=== PATIENT | female | born 1980 | race Caucasian/White ===

== ENCOUNTER 2021-05-23 09:33 | Emergency (ER) | payer MEDICAID, OTHER ==
[2021-05-23] MEDS ORDERED: Ondansetron 4 MG Tab.DIS PO ONE (09:56)
--- NOTE | 2021-05-23 09:59 | EDM.PDOC ---
ED HPI GENERAL MEDICAL PROBLEM - General Chief Complaint: Abdominal Pain Stated Complaint: [id number] SHARP PAIN IN UPPER STOMACH Time Seen by Provider: 05/23/21 09:58 Source of Information: Reports: Patient, RN, RN Notes Reviewed History Limitations: Reports: No Limitations - History of Present Illness INITIAL COMMENTS - FREE TEXT/NARRATIVE: Lorraine is a 40 y/o female who presents to the ED via personal vehicle with complaints of midepigastric abdominal pain and nausea. The patient reports her symptoms started five days ago and have waxed and waned in severity over that time. She characterizes the pain as sharp which sometimes radiates into the right chest. The patient states she was taking Aleve for the pain, but stopped two days ago after she read Aleve can irritate the stomach. She denies fever, shaking chills, vomiting, dysuria, hematuria, constipation, or diarrhea. She notes her last meal was a light snack before bed as she did not eat supper due to pain. Her LMP ended two two days ago. Her last BM was yesterday and was normal for her. She denies tobacco, alcohol, or recreational drug use. 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: Psychiatric History: Reports: Anxiety Hematologic History: Reports: Transfusion Reaction Other Hematologic History: Factor V - Infectious Disease History Infectious Disease History: Reports: Chicken Pox - Past Surgical History HEENT Surgical History: Reports: Adenoidectomy, Naso-Sinus Surgery, Tonsillectomy, Other (See Below) Other HEENT Surgeries/Procedures: wisdom teeth removed Social & Family History - Tobacco Use Tobacco Use Status *Q: Never Tobacco User - Recreational Drug Use Recreational Drug Use: No ED ROS GENERAL - Review of Systems Review Of Systems: Comprehensive ROS is negative, except as noted in HPI. ED EXAM, GI/ABD - Physical Exam Exam: See Below Exam Limited By: No Limitations General Appearance: Alert, Mild Distress (Midepigastric pain) Eyes: Bilateral: Normal Appearance, EOMI Ears: Normal External Exam, Hearing Grossly Normal Nose: Normal Inspection, Normal Mucosa Throat/Mouth: Normal Inspection, Normal Oropharynx, Normal Voice, No Airway Compromise Head: Atraumatic, Normocephalic Neck: Normal Inspection, Supple, Non-Tender, Full Range of Motion Respiratory/Chest: No Respiratory Distress, Lungs Clear, Normal Breath Sounds, No Accessory Muscle Use, Chest Non-Tender Cardiovascular: Normal Peripheral Pulses, Regular Rate, Rhythm, No Edema, No Gallop, No JVD, No Murmur, No Rub GI/Abdominal Exam: Soft, No Distention, No Abnormal Bruit, No Mass, Pelvis Stable, Tender (To midepigastric region), Abnormal Bowel Sounds (Hypoactive) (Female) Exam: Deferred Rectal (Female) Exam: Deferred Back Exam: Normal Inspection, Full Range of Motion Extremities: Normal Inspection, Normal Range of Motion, Non-Tender, No Pedal Edema, Normal Capillary Refill Neurological: Alert, Oriented, CN II-XII Intact, Normal Cognition, Normal Gait, No Motor/Sensory Deficits Psychiatric: Normal Affect, Normal Mood Skin Exam: Warm, Dry, Intact, Normal Color, No Rash. No: Cyanosis, Ecchymosis, Erythema, Jaundice, Mottled, Pallor, Petechiae Lymphatic: No Adenopathy #1 Interpretation EKG Date: 05/23/21 Time: 10:47 Rhythm: NSR Rate (Beats/Min): 76 [place]: Normal P-Wave: Present QRS: Normal ST-T: Normal QT: Normal MA/PQ Interval: 0.136 Comparison: NA - No Prior EKG EKG Interpretation Comments: NSR; No evidence of acute myocardial ischemia Course - Vital Signs Last Recorded V/S: Last Vital Signs Temp 97.5 F 05/23/21 09:41 Pulse 78 05/23/21 09:41 Resp 16 05/23/21 09:41 BP 131/82 05/23/21 09:41 Pulse Ox 100 05/23/21 09:41 - Orders/Labs/Meds Orders: Active Orders 24 hr Category Date Time Status Abdomen Ltd [US] Urgent Exams 05/23/21 10:39 Taken Labs: Laboratory Tests 05/23/21 05/23/2121 Range/Units 10:04 10:04 10:04 WBC (5.0-10.0) 10^3/uL RBC (4.2-5.4) 10^6/uL Hgb (12.0-16.0) g/dL Hct (37.0-47.0) % MCV (80-100) fL MCH (27.0-34.0) pg MCHC (33.0-35.0) g/dL Plt Count (150-450) 10^3/uL Neut % (Auto) (42.2-75.2) % Lymph % (Auto) (20.5-50.1) % Gila % (Auto) (2-8) % Eos % (Auto) (1.0-3.0) % Baso % (Auto) (0.0-1.0) % Sodium (136-145) mmol/L Potassium (3.5-5.1) mmol/L Chloride (98-107) mmol/L Carbon Dioxide (21-32) mmol/L Anion Gap (7-13) mEq/L BUN (7-18) mg/dL Creatinine (0.55-1.02) mg/dL Est Cr Clr Drug Dosing mL/min Estimated GFR (MDRD) BUN/Creatinine Ratio (No establ ref range) Glucose (70-99) mg/dL Lactic Acid (0.4-2.0) mmol/L Calcium (8.5-10.1) mg/dL Magnesium (1.8-2.4) mg/dL Total Bilirubin (0.2-1.0) mg/dL AST (15-37) U/L ALT (14-59) U/L Alkaline Phosphatase (46-116) U/L Troponin I High Sens (<=51) pg/mL C-Reactive Protein (0.0-0.9) mg/dL Total Protein (6.4-8.2) g/dL Albumin (3.4-5.0) g/dL Globulin Albumin/Globulin Ratio Amylase (25-115) U/L Lipase (73-393) U/L Urine Color Yellow (YELLOW) Urine Appearance Clear (CLEAR) Urine pH 8.0 (5.0-9.0) Ur Specific Brilliant 1.015 (1.005-1.030) Urine Protein Negative (NEGATIVE) Urine Glucose (UA) Negative (NEGATIVE) Urine Ketones Negative (NEGATIVE) Urine Occult Blood Negative (NEGATIVE) Urine Nitrite Negative (NEGATIVE) Urine Bilirubin Negative (NEGATIVE) Urine Urobilinogen 0.2 (0.2-1.0) mg/dL Ur Leukocyte Esterase Negative (NEGATIVE) Urine HCG, Qual Negative Urine Opiates Screen Negative (NEGATIVE) Ur Oxycodone Screen Negative (NEGATIVE) Urine Methadone Screen Negative (NEGATIVE) Ur Barbiturates Screen Negative (NEGATIVE) U Tricyclic Antidepress Negative (NEGATIVE) Ur Phencyclidine Scrn Negative (NEGATIVE) Ur Amphetamine Screen Negative (NEGATIVE) U Methamphetamines Scrn Negative (NEGATIVE) Urine MDMA Screen Negative (NEGATIVE) U Benzodiazepines Scrn Negative (NEGATIVE) Urine Cocaine Screen Negative (NEGATIVE) U Marijuana (THC) Screen Negative (NEGATIVE) Ethyl Alcohol (0) mg/dL 05/23/21 05/23/21 05/23/21 Range/Units 10:10 10:10 10:10 WBC 4.9 L (5.0-10.0) 10^3/uL RBC 4.86 (4.2-5.4) 10^6/uL Hgb 14.4 (12.0-16.0) g/dL Hct 43.0 (37.0-47.0) % MCV 88.5 (80-100) fL MCH 29.6 (27.0-34.0) pg MCHC 33.5 (33.0-35.0) g/dL Plt Count 228 (150-450) 10^3/uL Neut % (Auto) 63.7 (42.2-75.2) % Lymph % (Auto) 27.8 (20.5-50.1) % Gila % (Auto) 6.7 (2-8) % Eos % (Auto) 1.6 (1.0-3.0) % Baso % (Auto) 0.2 (0.0-1.0) % Sodium 141 (136-145) mmol/L Potassium 3.9 (3.5-5.1) mmol/L Chloride 102 (98-107) mmol/L Carbon Dioxide 28 (21-32) mmol/L Anion Gap 14.9 H (7-13) mEq/L BUN 10 (7-18) mg/dL Creatinine 0.87 (0.55-1.02) mg/dL Est Cr Clr Drug Dosing 82.08 mL/min Estimated GFR (MDRD) > 60 BUN/Creatinine Ratio 11.5 (No establ ref range) Glucose 88 (70-99) mg/dL Lactic Acid 0.8 (0.4-2.0) mmol/L Calcium 9.6 (8.5-10.1) mg/dL Magnesium 2.2 (1.8-2.4) mg/dL Total Bilirubin 0.3 (0.2-1.0) mg/dL AST 18 (15-37) U/L ALT 31 (14-59) U/L Alkaline Phosphatase 70 (46-116) U/L Troponin I High Sens < 4 (<=51) pg/mL C-Reactive Protein < 0.2 (0.0-0.9) mg/dL Total Protein 7.4 (6.4-8.2) g/dL Albumin 4.1 (3.4-5.0) g/dL Globulin 3.3 Albumin/Globulin Ratio 1.2 Amylase 78 (25-115) U/L Lipase 127 (73-393) U/L Urine Color (YELLOW) Urine Appearance (CLEAR) Urine pH (5.0-9.0) Ur Specific Brilliant (1.005-1.030) Urine Protein (NEGATIVE) Urine Glucose (UA) (NEGATIVE) Urine Ketones (NEGATIVE) Urine Occult Blood (NEGATIVE) Urine Nitrite (NEGATIVE) Urine Bilirubin (NEGATIVE) Urine Urobilinogen (0.2-1.0) mg/dL Ur Leukocyte Esterase (NEGATIVE) Urine HCG, Qual Urine Opiates Screen (NEGATIVE) Ur Oxycodone Screen (NEGATIVE) Urine Methadone Screen (NEGATIVE) Ur Barbiturates Screen (NEGATIVE) U Tricyclic Antidepress (NEGATIVE) Ur Phencyclidine Scrn (NEGATIVE) Ur Amphetamine Screen (NEGATIVE) U Methamphetamines Scrn (NEGATIVE) Urine MDMA Screen (NEGATIVE) U Benzodiazepines Scrn (NEGATIVE) Urine Cocaine Screen (NEGATIVE) U Marijuana (THC) Screen (NEGATIVE) Ethyl Alcohol < 3 (0) mg/dL Meds: Medications Discontinued Medications Generic Name Dose Route Start Last Admin Trade Name Freq PRN Reason Stop Dose Admin Al Hydroxide/Mg Hydroxide 30 ml 05/23/21 10:06 05/23/21 10:13 Gi Cocktail Oral Solution 30 Ml PO 05/23/21 10:07 30 ml ONETIME ONE Administration Ondansetron HCl 4 mg 05/23/21 09:56 05/23/21 10:12 Ondansetron 4 Mg Tab.Dis PO 05/23/21 09:57 4 mg ONETIME ONE Administration - Re-Assessments/Exams Free Text/Narrative Re-Assessment/Exam: 05/23/21 GI cocktail and Zofran ODT administered. Labs pending. Patient verbalized moderate improvement in pain following medications. Will obtain US limited abdomen. US reveals cholelithiasis. Findings of examination, lab work, and imaging reviewed with patient. Discussed supportive cares for gallstones as well as need for follow up with PCP and general surgeon, as warranted. Red flag signs and symptoms which would warrant reevaluation reviewed. Patient verbalized understanding and agreement with the plan of care. Departure - Departure Time of Disposition: 14:16 Disposition: Home, Self-Care 01 Condition: Good Clinical Impression: Gallstones without obstruction of gallbladder Qualifiers: Cholelithiasis location: gallbladder Cholecystitis presence: without cholecystitis Qualified Code(s): K80.20 - Calculus of gallbladder without cholecystitis without obstruction - Discharge Information *PRESCRIPTION DRUG MONITORING PROGRAM REVIEWED*: Not Applicable *COPY OF PRESCRIPTION DRUG MONITORING REPORT IN PATIENT IZZY: Not Applicable Instructions: Cholelithiasis Referrals: Shaunna Coughlin MD [Primary Care Provider] - Forms: ED Department Discharge Additional Instructions: 1.) Eat a bland diet, avoid greasy, high-fat, spicy foods. 2.) Drink plenty of water to stay hydrated. 3.) Follow up with your primary care provider regarding today's visit, discuss a surgical consult for repeat attacks. Sepsis Event Note (ED) - Focused Exam Vital Signs: Vital Signs Temp Pulse Resp BP Pulse Ox 05/23/21 09:41 97.5 F 78 16 131/82 100 - My Orders Last 24 Hours: My Active Orders 05/23/21 10:39 Abdomen Ltd [US] Urgent - Assessment/Plan Last 24 Hours: My Active Orders 05/23/21 10:39 Abdomen Ltd [US] Urgent
[2021-05-23] MEDS ORDERED: GI Cocktail Oral Solution 30 ML PO ONE (10:06)
[2021-05-23 10:28] LABS: AMPHETAMINES,URINE NEGATIVE (NEGATIVE); BARBITURATES,URINE NEGATIVE (NEGATIVE); BENZODIAZEPINE,URINE NEGATIVE (NEGATIVE); MDMA (ECSTASY), URINE NEGATIVE (NEGATIVE); METHADONE,URINE NEGATIVE (NEGATIVE); METHAMPHETAMINES,URINE NEGATIVE (NEGATIVE); OPIATES,URINE NEGATIVE (NEGATIVE); OXYCODONE,URINE NEGATIVE (NEGATIVE); PHENCYCLIDINE,URINE NEGATIVE (NEGATIVE); TCA,URINE NEGATIVE (NEGATIVE)
[2021-05-23 10:40] LABS: ANION GAP 14.9 mEq/L (7-13); CHLORIDE,CL 102 mmol/L (98-107); SODIUM,NA 141 mmol/L (136-145)
--- NOTE | 2021-05-24 16:04 | US ---
EXAMINATION: Abdomen Ltd SEX: Female AGE: 40 years CLINICAL HISTORY: 40-year-old female with upper abdominal pain. r/o gallstones. INTERPRETATION: Abnormal. 1. Multiple mobile dependent intraluminal echogenic "shadowing" gallstones (RUQ). 2. No gallbladder wall thickening or abnormal pericystic fluid accumulation. 3. Homogeneous normal sonodensity of the liver. 4. No intrahepatic mass lesion or abnormal dilatation of the intra/\\slash extrahepatic biliary ducts. 5. Normal pancreas. 6. Common hepatic duct 1.59 mm; common bile duct 4.46 mm. 7. No ascites. CONCLUSION: Cholelithiasis.
== END 2021-05-23 14:35 | disposition home or self-care (01) ==
LOC: DL.ED 09:33
DX: K80.20 Calculus of gallbladder without cholecystitis without obstruction (principal); Z88.2 Allergy status to sulfonamides
CPT/HCPCS: 36415; 76705; 80053; 80305; 80307; 81003; 81025; 82150; 83605; 83690; 83735; 84484; 85025; 86140; 93005; 99284; A9270

== ENCOUNTER 2025-04-25 19:30 | Emergency (ER) | payer SELFPAY ==
[2025-04-25] MEDS: Sodium Chloride 0.9% 10 ML Syringe FLUSH PRN (19:40)
[2025-04-25] MEDS: Ondansetron 4 MG/2 ML SDV IVPUSH ONE ×2 (19:47→21:08)
[2025-04-25 20:04] LABS: BASOPHILS PERCENT AUTO 0.1 % (0.0-1.0); EOSINOPHILS PERCENT AUTO 0.0 % (1.0-3.0); LYMPHOCYTES PERCENT AUTO 7.6 % (20.5-50.1); MONOCYTES PERCENT AUTO 3.4 % (2-8); NEUTROPHILS PERCENT AUTO 88.9 % (42.2-75.2); PLATELET COUNT,PLT 235 10^3/uL (150-450); RED BLOOD CELL COUNT 4.79 10^6/uL (4.2-5.4); WHITE BLOOD CELL COUNT,WBC 14.8 10^3/uL (5.0-10.0)
[2025-04-25 20:20] LABS: HCG QUALITATIVE,SERUM NEGATIVE (NEGATIVE)
[2025-04-25 20:29] LABS: LACTIC ACID 2.9 mmol/L (0.4-2.0)
[2025-04-25] MEDS: Iopamidol 612 MG/ML 100 ML Bottle IVPUSH ONE (20:31)
[2025-04-25 20:37] LABS: A/G RATIO 1.0; ALANINE AMINOTRANSFERASE,ALT 27 U/L (14-59); ASPARTATE AMNIOTRANSFERASE,AST 16 U/L (15-37); BILIRUBIN TOTAL 0.4 mg/dL (0.2-1.0); BLOOD UREA NITROGEN,BUN 14 mg/dL (7-18); CARBON DIOXIDE,CO2 27 mmol/L (21-32); CHLORIDE,CL 101 mmol/L (98-107); CREATININE 1.02 mg/dL (0.55-1.02); EST CRCL DRUG DOSING (CG) 67.26 mL/min; ESTIMATED GFR 70 mL/min (>=60); GLUCOSE RANDOM 113 mg/dL (70-99); POTASSIUM,K 3.9 mmol/L (3.5-5.1); PROTEIN TOTAL,TP 7.9 g/dL (6.4-8.2); SODIUM,NA 140 mmol/L (136-145)
[2025-04-25] MEDS: Ondansetron 4 MG/2 ML SDV ONE ×2 (21:09→23:35)
[2025-04-25 21:25] LABS: APPEARANCE,URINE CLEAR (CLEAR); GLUCOSE,URINE NEGATIVE (NEGATIVE); OCCULT BLOOD,URINE NEGATIVE (NEGATIVE)
== END 2025-04-25 23:48 ==
LOC: DL.ED 19:30
DX: K35.80 Unspecified acute appendicitis (principal); Z88.8 Allergy status to other drugs, medicaments and biological substances; Z79.899 Other long term (current) drug therapy
CPT/HCPCS: 36415; 74177; 80053; 81003; 83605; 83690; 83735; 84703; 85025; 86140; 96361; 96365; 96375; 96376; 99285; 99285-25; J1171; J2405; J2543; J2765; J7030; Q9967